=== PATIENT | female | born 1995 | race Two or more races ===

== ENCOUNTER 2020-05-06 08:31 | Inpatient (IN) | payer OTHER ==
[~2020-05-06] VITALS: Ht 149.9 cm; Wt 100.0 kg
[2020-05-06] MEDS: LACTATED RINGERS 1,000 ML IV SCH ×3 (01:00→14:43)
[2020-05-06] MEDS ORDERED: LACTATED RINGERS 1,000 ML IV SCH ×2 (09:38→12:26)
[2020-05-06] MEDS ORDERED: OXYTOCIN 30U/ 0.9% NaCL 500ML 500 ML IV ONE (09:38)
[2020-05-06] MEDS ORDERED: AMPICILLIN 2 GM in SODIUM CHLORIDE 0.9% 100 ML IVPB STA (09:38)
[2020-05-06] MEDS ORDERED: D5%-LACTATED RINGERS 1,000 ML IV SCH (09:38)
[2020-05-06] MEDS ORDERED: CALCIUM CARBONATE 500 MG TAB.CHEW PO PRN ×2 (10:00→15:00)
[2020-05-06] MEDS ORDERED: FENTANYL PF 100 MCG/2ML IVPush PRN (10:00)
[2020-05-06] MEDS ORDERED: FENTANYL PF 100 MCG/2ML IV PRN (10:00)
[2020-05-06] MEDS ORDERED: AMPICILLIN 1 GM in SODIUM CHLORIDE 0.9% 100 ML IVPB SCH (10:00)
[2020-05-06] MEDS ORDERED: TERBUTALINE 1 MG/ML, 1ML SQ PRN (10:00)
[2020-05-06] MEDS ORDERED: ONDANSETRON 2MG/ML, 2ML IVPush PRN ×3 (10:00→18:30)
[2020-05-06] MEDS ORDERED: TERBUTALINE 1 MG/ML, 1ML IVPush PRN (10:00)
[2020-05-06 10:12] LABS: BASOPHILS % (AUTO) 0 % (0-1); EOSINOPHILS # (AUTO) 0.09 x10^3/uL (0-0.4); EOSINOPHILS % (AUTO) 1 % (1-7); LYMPHOCYTES # (AUTO) 0.79 x10^3/uL (1-3.4); LYMPHOCYTES % (AUTO) 7 % (22-44); MD NO; MEAN CORPUSCULAR HEMOGLOBIN 31.2 pg (27.0-34.8); MEAN CORPUSCULAR HGB CONC 33.3 g/dL (32.4-35.8); MEAN PLATELET VOLUME 11.3 fL (7.4-10.4); MONOCYTES # (AUTO) 0.38 x10^3/uL (0.2-0.8); MONOCYTES % (AUTO) 3 % (2-9); NEUTROPHILS # (AUTO) 9.95 x10^3/uL (1.8-6.8); NEUTROPHILS % (AUTO) 89 % (42-75); PLATELET COUNT 118 x10^3/uL (130-400); RED CELL DISTRIBUTION WIDTH 14.4 % (9.6-15.2)
[2020-05-06] MEDS ORDERED: OXYTOCIN 30U/ 0.9% NaCL 500ML 500 ML ONE (11:29)
[2020-05-06] MEDS ORDERED: NEWBORN KIT ONE (11:47)
[2020-05-06] MEDS ORDERED: FENTANYL/BUPIV./NS/PF 250 ML EPIDCONT ONE (11:55)
[2020-05-06] MEDS ORDERED: BUPIVACAINE 0.25% ONE (11:55)
[2020-05-06] MEDS ORDERED: FENTANYL/BUPIV./NS/PF 250 ML EPIDCONT SCH (12:26)
[2020-05-06] MEDS ORDERED: LACTATED RINGERS 1,000 ML IVBOLUS PRN (12:30)
[2020-05-06] MEDS ORDERED: NALOXONE 0.4 MG/ML, 1ML IVPush PRN (12:30)
[2020-05-06] MEDS ORDERED: DIPHENHYDRAMINE 50 MG/ML, 1ML IVPush PRN (12:30)
[2020-05-06] MEDS ORDERED: EPHEDRINE 50 MG/ML, 1ML IVPush PRN ×2 (12:30→18:30)
[2020-05-06 12:33] LABS: MICROSCOPIC INDICATED
[2020-05-06] MEDS ORDERED: LIDOCAINE/MPF 2%-EPI 1:200K, 20 ML ONE (13:42)
[2020-05-06] MEDS ORDERED: SODIUM CITRATE/CITRIC ACID 30 ML UDC ONE (13:47)
[2020-05-06] MEDS ORDERED: METOCLOPRAMIDE 5 MG/ML, 2ML ONE (13:47)
[2020-05-06] MEDS ORDERED: morphine SULFATE/PF 1 MG/ML, 10ML ONE (13:51)
[2020-05-06] MEDS ORDERED: CEFAZOLIN 1,000 MG ONE (13:58)
[2020-05-06] MEDS ORDERED: ONDANSETRON 2MG/ML, 2ML ONE (13:58)
[2020-05-06] MEDS ORDERED: OXYTOCIN 10 UNITS/ML, 1ML ONE (13:58)
[2020-05-06] MEDS ORDERED: KETOROLAC 30 MG/1 ML ONE (13:58)
[2020-05-06] MEDS ORDERED: WATER-INJECTION,STERILE 10 ML IV ONE (13:58)
[2020-05-06] MEDS ORDERED: DEXAMETHASONE 4 MG/ML, 1ML ONE (13:58)
[2020-05-06] MEDS ORDERED: PHENYLEPHRINE 10 MG/ML ONE (14:00)
[2020-05-06] MEDS ORDERED: SODIUM CHLORIDE 0.9% PF 10ML ONE (14:00)
[2020-05-06] MEDS: OXYTOCIN 30U/ 0.9% NaCL 500ML 500 ML IV SCH (14:43)
[2020-05-06] MEDS: KETOROLAC 30 MG/1 ML IV SCH ×2 (15:00→20:55)
[2020-05-06] MEDS ORDERED: METHYLERGONOVINE 0.2 MG/ML IM PRN (15:00)
[2020-05-06] MEDS ORDERED: MEPERIDINE/PF 50 MG/ML IM PRN (15:00)
[2020-05-06] MEDS ORDERED: morphine SULFATE 10 MG/ML, 1ML IVPush PRN (15:00)
[2020-05-06] MEDS ORDERED: ONDANSETRON 2MG/ML, 2ML IV PRN (15:00)
[2020-05-06] MEDS ORDERED: MEPERIDINE/PF 100 MG/ML IVPush PRN (15:00)
[2020-05-06] MEDS ORDERED: OXYcodone/APAP 5/325MG TABLET PO PRN ×2 (15:00→18:30)
[2020-05-06] MEDS ORDERED: SIMETHICONE 80 MG CHEW TAB PO PRN (15:00)
[2020-05-06] MEDS ORDERED: MISOPROSTOL 200 MCG TABLET PR PRN (15:00)
[2020-05-06] MEDS ORDERED: SODIUM CITRATE/CITRIC ACID 30 ML UDC PO ONE (15:30)
[2020-05-06] MEDS ORDERED: METOCLOPRAMIDE 5 MG/ML, 2ML IV ONE (15:30)
[2020-05-06] MEDS ORDERED: OXYcodone/APAP 5/325MG TABLET ONE (16:18)
[2020-05-06] MEDS: OXYcodone/APAP 5/325MG TABLET PO PRN (16:21)
[2020-05-06 17:12] VITALS: BP 119/86
[2020-05-06] MEDS ORDERED: MORPHINE SULFATE 4 MG/ML, 1ML IV PRN (18:30)
[2020-05-06] MEDS ORDERED: NO SEDATIVES, TRANQUILIZERS OR ANTIEMETICS XX SCH (18:30)
[2020-05-06] MEDS ORDERED: NALOXONE 0.4 MG/ML, 1ML IV PRN (18:30)
[2020-05-06] MEDS ORDERED: DIPHENHYDRAMINE 50 MG/ML, 1ML IV PRN (18:30)
[2020-05-06 19:40] VITALS: BP 101/63
[2020-05-06 22:36] LABS: BASOPHILS # (AUTO) 0.01 x10^3/uL (0-0.1); BASOPHILS % (AUTO) 0 % (0-1); EOSINOPHILS % (AUTO) 0 % (1-7); LYMPHOCYTES # (AUTO) 0.95 x10^3/uL (1-3.4); LYMPHOCYTES % (AUTO) 8 % (22-44); MD NO; MEAN CORPUSCULAR HEMOGLOBIN 31.1 pg (27.0-34.8); MEAN CORPUSCULAR HGB CONC 33.3 g/dL (32.4-35.8); MEAN PLATELET VOLUME 11.3 fL (7.4-10.4); MONOCYTES # (AUTO) 0.65 x10^3/uL (0.2-0.8); MONOCYTES % (AUTO) 5 % (2-9); NEUTROPHILS # (AUTO) 10.32 x10^3/uL (1.8-6.8); NEUTROPHILS % (AUTO) 87 % (42-75); PLATELET COUNT 115 x10^3/uL (130-400); RED BLOOD COUNT 4.34 x10^6/uL (3.82-5.3); RED CELL DISTRIBUTION WIDTH 14.4 % (9.6-15.2)
[2020-05-07] MEDS: OXYTOCIN 30U/ 0.9% NaCL 500ML 500 ML IV SCH (00:43)
[2020-05-07] MEDS: LACTATED RINGERS 1,000 ML IV SCH ×2 (00:43→06:43)
[2020-05-07 01:00] VITALS: BP 104/69
[2020-05-07] MEDS: KETOROLAC 30 MG/1 ML IV SCH ×4 (02:26→19:57)
[2020-05-07 04:21] VITALS: BP 107/72
[2020-05-07 08:25] VITALS: BP 101/68
[2020-05-07] MEDS: PRENATAL VIT/IRON/FA 1 EACH TABLET PO SCH (08:28)
[2020-05-07] MEDS: DOCUSATE 100 MG CAPSULE PO PRN (08:29)
[2020-05-07] MEDS: OXYcodone/APAP 5/325MG TABLET PO PRN ×2 (08:30→12:33)
[2020-05-07 11:50] VITALS: BP 111/73
[2020-05-07 19:45] VITALS: BP 108/72
[2020-05-08] MEDS: KETOROLAC 30 MG/1 ML IV SCH ×2 (02:22→08:43)
[2020-05-08 07:44] VITALS: BP 115/76
[2020-05-08] MEDS: DOCUSATE 100 MG CAPSULE PO PRN (08:43)
[2020-05-08] MEDS: OXYcodone/APAP 5/325MG TABLET PO PRN ×2 (08:43→14:43)
[2020-05-08] MEDS: PRENATAL VIT/IRON/FA 1 EACH TABLET PO SCH (08:43)
[2020-05-08] MEDS: IBUPROFEN 600 MG TABLET PO PRN (14:43)
[2020-05-08 20:00] VITALS: BP 112/66
[2020-05-09] MEDS: PRENATAL VIT/IRON/FA 1 EACH TABLET PO SCH (07:08)
[2020-05-09] MEDS: DOCUSATE 100 MG CAPSULE PO PRN (07:09)
[2020-05-09] MEDS: IBUPROFEN 600 MG TABLET PO PRN (07:09)
[2020-05-09] MEDS: OXYcodone/APAP 5/325MG TABLET PO PRN ×2 (07:10→11:28)
[2020-05-09 07:30] VITALS: BP 117/74
[2020-05-09] MEDS ORDERED: IBUP-1223 PO (11:19)
[2020-05-09] MEDS ORDERED: OXYC-302 PO (11:19)
[2020-05-09] MEDS ORDERED: DOCU-131 PO (11:20)
[2020-05-09] MEDS ORDERED: PNV11TAB PO (11:20)
== END 2020-05-09 13:22 | disposition home or self-care (01) | DRG 788 ==
LOC: LDOP 08:31 → LDIP 09:55 → 2NW 16:35
PROVIDERS: ADMIT Obstetrics & Gynecology; ATTEND Obstetrics & Gynecology
PROC: 10D00Z1 Extraction of Products of Conception, Low, Open Approach (ICD-10-PCS; principal; 2020-05-06)
DX: O32.1XX0 Maternal care for breech presentation, not applicable or unspecified (principal); O24.420 Gestational diabetes mellitus in childbirth, diet controlled; Z37.0 Single live birth; Z3A.34 34 weeks gestation of pregnancy; Z20.828 Contact with and (suspected) exposure to other viral communicable diseases
CPT/HCPCS: 36415; 81001; 82803; 84112; 85025; 86592; 86850; 86900; 87081; 87086; 87147; 87635; 88307; G0378; J0290; J0690; J1100; J1885; J2274; J2405; J3010; J3490; J2370; J2590; J2765; J7120